=== PATIENT | female | born 1985 | race African-American/Black ===

== ENCOUNTER 2019-12-11 10:47 | Emergency (ER) | payer MEDICAID, OTHER ==
[~2019-12-11] VITALS: Ht 165.1 cm; Wt 78.0 kg
[~2019-12-11 10:47] MED LIST: QUET100T; QUET200T
[2019-12-11 10:49] VITALS: BP 103/68
[2019-12-11] MEDS ORDERED: IBUPROFEN 800MG TABLET PO ONE (11:15)
[2019-12-11] MEDS ORDERED: DIAZEPAM 5 MG TABLET PO ONE (11:15)
[2019-12-11] MEDS ORDERED: ACETAMINOPHEN 325MG TABLET PO ONE (11:30)
[2019-12-11] MEDS ORDERED: ACETAMINOPHEN 500MG TABLET PO ONE (12:15)
== END 2019-12-11 13:06 | disposition home or self-care (01) ==
LOC: ER 10:47
DX: O26.91 Pregnancy related conditions, unspecified, first trimester (principal); M54.5 Low back pain; M54.2 Cervicalgia; Z3A.00 Weeks of gestation of pregnancy not specified; V43.52XA Car driver injured in collision with other type car in traffic accident, initial encounter; Y93.89 Activity, other specified; Y92.488 Other paved roadways as the place of occurrence of the external cause
CPT/HCPCS: 76801; 81025; 99284

== ENCOUNTER 2022-03-11 10:17 | Emergency (ER) | payer MEDICAID ==
[~2022-03-11] VITALS: Ht 165.1 cm; Wt 101.0 kg
[2022-03-11] MEDS ORDERED: NAPR-1176 MT (11:22)
[2022-03-11] MEDS ORDERED: IBUPROFEN 800MG TABLET PO ONE (11:30)
[2022-03-11 11:39] VITALS: BP 124/84
== END 2022-03-11 11:44 | disposition home or self-care (01) ==
LOC: ER 10:17
DX: S16.1XXA Strain of muscle, fascia and tendon at neck level, initial encounter (principal); S39.012A Strain of muscle, fascia and tendon of lower back, initial encounter; M25.519 Pain in unspecified shoulder; V49.49XA Driver injured in collision with other motor vehicles in traffic accident, initial encounter; Y93.89 Activity, other specified; Y92.488 Other paved roadways as the place of occurrence of the external cause
CPT/HCPCS: 99282

== ENCOUNTER 2025-08-06 08:35 | Emergency (ER) | payer MEDICAID ==
[~2025-08-06] VITALS: Ht 172.7 cm; Wt 95.0 kg
[~2025-08-06 08:35] MED LIST changes: +NAPR-1176 MT
[2025-08-06 08:44] VITALS: BP 123/70; RESP 16; TEMP 37.1; O2SAT 99
[2025-08-06] MEDS ORDERED: TOPUD MT (10:31)
[2025-08-06] MEDS ORDERED: IBUP-1525 MT (10:31)
[2025-08-06 11:05] VITALS: PULSE 72; O2SAT 100
== END 2025-08-06 11:10 | disposition home or self-care (01) ==
LOC: ER 08:35
DX: S62.502A Fracture of unspecified phalanx of left thumb, initial encounter for closed fracture (principal); S62.601A Fracture of unspecified phalanx of left index finger, initial encounter for closed fracture; X58.XXXA Exposure to other specified factors, initial encounter; Y93.89 Activity, other specified; Y92.89 Other specified places as the place of occurrence of the external cause; Y99.8 Other external cause status
CPT/HCPCS: 29130; 73130; 99283

== ENCOUNTER 2025-09-29 09:19 | Emergency (ER) | payer OTHER, MEDICAID ==
[~2025-09-29] VITALS: Ht 172.7 cm; Wt 82.0 kg
[~2025-09-29 09:19] MED LIST changes: +IBUP-1525 MT; +TOPUD MT
[2025-09-29 09:40] VITALS: O2SAT 100
[2025-09-29] MEDS: ACETAMINOPHEN 500MG TABLET PO ONE (10:28)
[2025-09-29] MEDS: LIDOCAINE 5% PATCH TOP SCH (10:29)
[2025-09-29] MEDS ORDERED: IBUP-2030 MT (10:52)
[2025-09-29] MEDS ORDERED: LIDO-53 TP (10:52)
[2025-09-29] MEDS: DEXAMETHASONE 10 MG/ML VIAL IV ONE (11:10)
[2025-09-29] MEDS: KETOROLAC 30MG/ML VIAL IM ONE (11:10)
[2025-09-29 11:11] VITALS: BP 123/65; PULSE 73; RESP 16; TEMP 36.7; O2SAT 100
== END 2025-09-29 11:12 | disposition home or self-care (01) ==
LOC: ER 09:19
DX: M79.18 Myalgia, other site (principal); V89.2XXA Person injured in unspecified motor-vehicle accident, traffic, initial encounter; Y93.89 Activity, other specified; Y92.89 Other specified places as the place of occurrence of the external cause; Y99.8 Other external cause status
CPT/HCPCS: 81025; 96372; 96374; 99284; J1100; J1885; Z7610